=== PATIENT | female | born 1995 | race African-American/Black ===

== ENCOUNTER 2021-10-09 12:28 | Emergency (ER) | payer OTHER ==
[~2021-10-09] VITALS: Ht 165.1 cm; Wt 50.0 kg
[2021-10-09] MEDS ORDERED: BACI500O8 TOP (13:04)
[2021-10-09 14:05] VITALS: BP 125/77
== END 2021-10-09 14:07 | disposition home or self-care (01) ==
LOC: M ED 12:28
DX: T22.011A Burn of unspecified degree of right forearm, initial encounter (principal); X11.8XXA Contact with other hot tap-water, initial encounter; Y93.89 Activity, other specified; Y99.1 Military activity

== ENCOUNTER 2021-12-05 07:01 | Emergency (ER) | payer OTHER ==
[~2021-12-05] VITALS: Ht 165.1 cm; Wt 53.9 kg
[2021-12-05 07:01] VITALS: BP 134/84
[~2021-12-05 07:01] MED LIST: BACI500O8 TOP
== END 2021-12-05 08:51 | disposition left against medical advice (07) ==
LOC: M ED 07:01
DX: Z53.21 Procedure and treatment not carried out due to patient leaving prior to being seen by health care provider (principal)

== ENCOUNTER → 2022-01-29 | Outpatient (CLI) | payer OTHER | LOC: M CARPUL 01-10 12:43 | DX: R06.02 Shortness of breath (principal); Z86.16 Personal history of COVID-19 ==

== ENCOUNTER → 2022-03-22 | Outpatient (CLI) | payer OTHER ==
[~2022-03-22] MED LIST changes: +METHACHOLINE KIT INH ONE
== END ==
LOC: M CARPUL 08:06
PROVIDERS: ATTEND Physician Assistant
DX: R06.00 Dyspnea, unspecified (principal)
CPT/HCPCS: 94070; J7674